=== PATIENT | male | born 1985 | race Hispanic/Latino ===

== ENCOUNTER → 2017-02-11 | Outpatient (CLI) | payer BC ==
[~2017-02-11] MED LIST: AMBIEN10 MG PO; CLONAZEPAM1 MG PO; CRESTOR10 MG PO; CRESTOR20 MG PO; LISINOPRIL20 MG PO; PROTONIX40 MG PO; TYLENOL REGULA325 MG PO
== END | disposition home or self-care (01) ==
LOC: NUC 07:00
DX: R10.13 Epigastric pain (principal)
CPT/HCPCS: 78202; 78227; A9537; J2805